=== PATIENT | female | born 1965 | race Caucasian/White ===

== ENCOUNTER 2016-02-19 18:35 | Emergency (ER) | payer OTHER ==
[2016-02-19] MEDS ORDERED: DIAZEPAM 5 MG/ML 2 ML SYRINGE IVP STA (19:21)
[2016-02-19] MEDS ORDERED: SODIUM CHLORIDE 0.9% 500 ML IV STA (19:21)
[2016-02-19] MEDS: MECLIZINE 12.5 MG TAB PO STA ×2 (19:37→20:27)
[2016-02-19] MEDS ORDERED: IPRATROPIUM-ALBUTEROL 3 ML NEB INHALATION STA (19:46)
--- NOTE | 2016-02-19 19:51 | ED ---
SOB HPI - General Chief Complaint: Shortness of Breath Stated Complaint: SHOLA Time Seen by Provider: 02/19/16 19:27 Source: patient, RN notes reviewed Mode of arrival: ambulatory Limitations: no limitations - History of Present Illness Initial Comments: Patient is a 50-year-old female presents emergency room for evaluation of shortness of breath. Patient states she began having a productive cough yesterday. Patient states that she's been taking [id number] cough medicine with no relief. Patient states today during the day the cough is worse. Patient states that now feels like someone is sitting on her chest. Patient states she feels like she can't take a deep breath or breathe all the way out. Patient does admit to smoking a half pack a day. Patient denies any significant past medical history. Patient states while she was coughing she began developing pain in her back between both shoulder blades. Patient states she began having increasing shortness of breath, which has been causing her to be anxious. Patient states she had a temperature earlier this evening and denies taking any Tylenol or Motrin. Patient states she's been on Keflex for about a week for an ingrown hair. Patient denies headache or dizziness. Patient has numbness or tingling in extremities. Patient states she did not receive her influenza vaccine this year. Patient denies abdominal pain, nausea or vomiting. - Related Data Home Medications Medication Instructions Recorded Confirmed Cephalexin [Keflex] 500 mg PO Q6HR 02/19/16 02/19/16 Ibuprofen [Motrin] 600 mg PO Q8HR PRN 02/19/16 02/19/16 Previous Rx's Medication Instructions Recorded Benzonatate [Tessalon Perles] 100 mg PO TID PRN #12 cap 02/19/16 guaiFENesin [Mucinex] 1,200 mg PO BID PRN #12 tab.er.12h 02/19/16 predniSONE 20 mg PO DAILY #5 tab 02/19/16 Allergies Allergy/AdvReac Type Severity Reaction Status Date / Time iodine Allergy Rash/Hives Verified 02/19/16 20:29 morphine Allergy Itching Verified 02/19/16 20:29 Review of Systems ROS Statement: Those systems with pertinent positive or pertinent negative responses have been documented in the HPI. ROS Other: All systems not noted in ROS Statement are negative. Past Medical History Past Medical History: No Reported History History of Any Multi-Drug Resistant Organisms: None Reported Past Surgical History: Orthopedic Surgery, Tubal Ligation Past Psychological History: No Psychological Hx Reported Smoking Status: Current every day smoker Past Alcohol Use History: Occasional Past Drug Use History: None Reported General Exam - General Exam Comments Initial Comments: Sitting in exam room, no acute distress. Limitations: no limitations General appearance: alert, in no apparent distress Head exam: Present: atraumatic, normocephalic, normal inspection Eye exam: Present: normal appearance, PERRL, EOMI Pupils: Present: normal accommodation ENT exam: Present: normal exam Neck exam: Present: normal inspection Respiratory exam: Present: normal lung sounds bilaterally. Absent: respiratory distress Cardiovascular Exam: Present: normal rhythm, tachycardia, normal heart sounds GI/Abdominal exam: Present: soft, normal bowel sounds. Absent: distended, tenderness, guarding, rebound, rigid Extremities exam: Present: normal inspection Back exam: Present: normal inspection Neurological exam: Present: alert, oriented X3, CN II-XII intact Psychiatric exam: Present: normal affect, normal mood Skin exam: Present: warm, dry, intact, normal color. Absent: rash Course Vital Signs 02/19/16 02/19/16 02/19/16 19:00 20:22 20:33 Temperature 98.2 F Pulse Rate 125 H 106 H 109 H Respiratory 24 Rate Blood Pressure 115/55 O2 Sat by Pulse 99 Oximetry 02/19/16 02/19/16 02/19/16 21:00 21:01 22:13 Temperature 98.6 F Pulse Rate 100 90 Respiratory 22 16 20 Rate Blood Pressure 100/52 101/56 O2 Sat by Pulse 98 97 Oximetry Medical Decision Making - Medical Decision Making Patient is a 50-year-old female presents to the emergency room for evaluation shortness of breath. Chest x-ray shows no significant findings. Labs significant for hypokalemia. Patient was given potassium. Cardiac labs within normal limits. Patient is resting comfortably in room. Agreed to send patient home with symptomatic treatment. Advised patient to follow up with her PCP in 24 -48 hours for reevaluation. Patient states she understands everything that was discussed with her. Return parameters discussed. Case discussed with Dr. Arellano. - Lab Data Result diagrams: 02/19/16 19:52 02/19/16 19:52 Lab Results 02/19/16 02/19/16 02/19/16 Range/Units 19:30 19:35 19:52 WBC (3.8-10.6) k/uL RBC (3.80-5.40) m/uL Hgb (11.4-16.0) gm/dL Hct (34.0-46.0) % MCV (80.0-100.0) fL MCH (25.0-35.0) pg MCHC (31.0-37.0) g/dL RDW (11.5-15.5) % Plt Count (150-450) k/uL Neutrophils % % Lymphocytes % % Monocytes % % Eosinophils % % Basophils % % Neutrophils # (1.3-7.7) k/uL Lymphocytes # (1.0-4.8) k/uL Monocytes # (0-1.0) k/uL Eosinophils # (0-0.7) k/uL Basophils # (0-0.2) k/uL PT (9.0-12.0) sec INR (<1.1) APTT (22.0-30.0) sec D-Dimer (<0.60) mg/L FEU Sodium (137-145) mmol/L Potassium (3.5-5.1) mmol/L Chloride (98-107) mmol/L Carbon Dioxide (22-30) mmol/L Anion Gap mmol/L BUN (7-17) mg/dL Creatinine (0.52-1.04) mg/dL Est GFR (MDRD) Af Amer (>60 ml/min/1.73 sqM) Est GFR (MDRD) Non-Af (>60 ml/min/1.73 sqM) Glucose (74-99) mg/dL Calcium (8.4-10.2) mg/dL Magnesium (1.6-2.3) mg/dL Total Bilirubin (0.2-1.3) mg/dL AST (14-36) U/L ALT (9-52) U/L Alkaline Phosphatase (38-126) U/L Total Creatine Kinase 101 (30-135) U/L CK-MB (CK-2) 0.7 (0.0-2.4) ng/mL CK-MB (CK-2) Rel Index 0.7 Troponin I <0.012 (0.000-0.034) ng/mL NT-Pro-B Natriuret Pep pg/mL Total Protein (6.3-8.2) g/dL Albumin (3.5-5.0) g/dL Urine Color Light Yellow Urine Appearance Clear (Clear) Urine pH 8.0 (5.0-8.0) Ur Specific [place] 1.018 (1.001-1.035) Urine Protein Negative (Negative) Urine Glucose (UA) Negative (Negative) Urine Ketones Negative (Negative) Urine Blood Trace H (Negative) Urine Nitrate Negative (Negative) Urine Bilirubin Negative (Negative) Urine Urobilinogen <2.0 (<2.0) mg/dL Ur Leukocyte Esterase Negative (Negative) Urine RBC 2 (0-5) /hpf Ur Squamous Epith Cells 2 (0-4) /hpf Urine Bacteria Rare H (None) /hpf Urine Mucus Rare H (None) /hpf Influenza Type A RNA Not Detected (Not Detectd) Influenza Type B (PCR) Not Detected (Not Detectd) 02/19/16 02/19/16 02/19/16 Range/Units 19:52 19:52 19:52 WBC 7.3 (3.8-10.6) k/uL RBC 3.96 (3.80-5.40) m/uL Hgb 13.1 (11.4-16.0) gm/dL Hct 38.1 (34.0-46.0) % MCV 96.1 (80.0-100.0) fL MCH 33.0 (25.0-35.0) pg MCHC 34.4 (31.0-37.0) g/dL RDW 12.6 (11.5-15.5) % Plt Count 231 (150-450) k/uL Neutrophils % 72 % Lymphocytes % 13 % Monocytes % 13 % Eosinophils % 1 % Basophils % 1 % Neutrophils # 5.3 (1.3-7.7) k/uL Lymphocytes # 0.9 L (1.0-4.8) k/uL Monocytes # 0.9 (0-1.0) k/uL Eosinophils # 0.0 (0-0.7) k/uL Basophils # 0.1 (0-0.2) k/uL PT 10.3 (9.0-12.0) sec INR 1.0 (<1.1) APTT 23.4 (22.0-30.0) sec D-Dimer 0.36 (<0.60) mg/L FEU Sodium 141 (137-145) mmol/L Potassium 3.0 L* (3.5-5.1) mmol/L Chloride 107 (98-107) mmol/L Carbon Dioxide 23 (22-30) mmol/L Anion Gap 11 mmol/L BUN 11 (7-17) mg/dL Creatinine 1.05 H (0.52-1.04) mg/dL Est GFR (MDRD) Af Amer >60 (>60 ml/min/1.73 sqM) Est GFR (MDRD) Non-Af 56 (>60 ml/min/1.73 sqM) Glucose 129 H (74-99) mg/dL Calcium 9.4 (8.4-10.2) mg/dL Magnesium 1.8 (1.6-2.3) mg/dL Total Bilirubin 0.3 (0.2-1.3) mg/dL AST 18 (14-36) U/L ALT 22 (9-52) U/L Alkaline Phosphatase 86 (38-126) U/L Total Creatine Kinase (30-135) U/L CK-MB (CK-2) (0.0-2.4) ng/mL CK-MB (CK-2) Rel Index Troponin I (0.000-0.034) ng/mL NT-Pro-B Natriuret Pep pg/mL Total Protein 6.0 L (6.3-8.2) g/dL Albumin 3.7 (3.5-5.0) g/dL Urine Color Urine Appearance (Clear) Urine pH (5.0-8.0) Ur Specific [place] (1.001-1.035) Urine Protein (Negative) Urine Glucose (UA) (Negative) Urine Ketones (Negative) Urine Blood (Negative) Urine Nitrate (Negative) Urine Bilirubin (Negative) Urine Urobilinogen (<2.0) mg/dL Ur Leukocyte Esterase (Negative) Urine RBC (0-5) /hpf Ur Squamous Epith Cells (0-4) /hpf Urine Bacteria (None) /hpf Urine Mucus (None) /hpf Influenza Type A RNA (Not Detectd) Influenza Type B (PCR) (Not Detectd) 02/19/16 Range/Units 19:52 WBC (3.8-10.6) k/uL RBC (3.80-5.40) m/uL Hgb (11.4-16.0) gm/dL Hct (34.0-46.0) % MCV (80.0-100.0) fL MCH (25.0-35.0) pg MCHC (31.0-37.0) g/dL RDW (11.5-15.5) % Plt Count (150-450) k/uL Neutrophils % % Lymphocytes % % Monocytes % % Eosinophils % % Basophils % % Neutrophils # (1.3-7.7) k/uL Lymphocytes # (1.0-4.8) k/uL Monocytes # (0-1.0) k/uL Eosinophils # (0-0.7) k/uL Basophils # (0-0.2) k/uL PT (9.0-12.0) sec INR (<1.1) APTT (22.0-30.0) sec D-Dimer (<0.60) mg/L FEU Sodium (137-145) mmol/L Potassium (3.5-5.1) mmol/L Chloride (98-107) mmol/L Carbon Dioxide (22-30) mmol/L Anion Gap mmol/L BUN (7-17) mg/dL Creatinine (0.52-1.04) mg/dL Est GFR (MDRD) Af Amer (>60 ml/min/1.73 sqM) Est GFR (MDRD) Non-Af (>60 ml/min/1.73 sqM) Glucose (74-99) mg/dL Calcium (8.4-10.2) mg/dL Magnesium (1.6-2.3) mg/dL Total Bilirubin (0.2-1.3) mg/dL AST (14-36) U/L ALT (9-52) U/L Alkaline Phosphatase (38-126) U/L Total Creatine Kinase (30-135) U/L CK-MB (CK-2) (0.0-2.4) ng/mL CK-MB (CK-2) Rel Index Troponin I (0.000-0.034) ng/mL NT-Pro-B Natriuret Pep 198 pg/mL Total Protein (6.3-8.2) g/dL Albumin (3.5-5.0) g/dL Urine Color Urine Appearance (Clear) Urine pH (5.0-8.0) Ur Specific [place] (1.001-1.035) Urine Protein (Negative) Urine Glucose (UA) (Negative) Urine Ketones (Negative) Urine Blood (Negative) Urine Nitrate (Negative) Urine Bilirubin (Negative) Urine Urobilinogen (<2.0) mg/dL Ur Leukocyte Esterase (Negative) Urine RBC (0-5) /hpf Ur Squamous Epith Cells (0-4) /hpf Urine Bacteria (None) /hpf Urine Mucus (None) /hpf Influenza Type A RNA (Not Detectd) Influenza Type B (PCR) (Not Detectd) - Radiology Data Radiology results: report reviewed, image reviewed Disposition Clinical Impression: Hypokalemia, Shortness of breath, Cough, Costochondral pain, Sinus congestion Disposition: HOME SELF-CARE Condition: Good Instructions: Hypokalemia (ED), Costochondritis (ED) Additional Instructions: Take medications as directed. Please follow up with primary care provider in 24 -48 hours for reevaluation. If any new symptom arises, symptoms worsen or fever develops, return to ER as soon as possible. Prescriptions: Benzonatate [Tessalon Perles] 100 mg PO TID PRN #12 cap PRN Reason: Cough guaiFENesin [Mucinex] 1,200 mg PO BID PRN #12 tab.er.12h PRN Reason: Congestion predniSONE 20 mg PO DAILY #5 tab Referrals: Eddie Martin MD [Primary Care Provider] - 1-2 days Time of Disposition: 21:57
[2016-02-19 20:08] LABS: Basophils # (A) 0.1 k/uL (0-0.2); Basophils % (A) 1 %; CH 33.2; CHCM 34.7; Eosinophils % (A) 1 %; HCT 38.1 % (34.0-46.0); HDW 2.37; HGB 13.1 gm/dL (11.4-16.0); Luc # (Auto) 0.08; Luc % (Auto) 1; Lymphocytes # (A) 0.9 k/uL (1.0-4.8); Lymphocytes % (A) 13 %; MCHC 34.4 g/dL (31.0-37.0); MCV 96.1 fL (80.0-100.0); Mean Platelet Volume 8.3; Monocytes # (A) 0.9 k/uL (0-1.0); Monocytes % (A) 13 %; Neutrophils # (A) 5.3 k/uL (1.3-7.7); Neutrophils % (A) 72 %; RBC 3.96 m/uL (3.80-5.40); RDW 12.6 % (11.5-15.5); WBC 7.3 k/uL (3.8-10.6); WBC (Perox) 7.34
[2016-02-19 20:20] LABS: ALT 22 U/L (9-52); AST 18 U/L (14-36); Alkaline Phosphatase 86 U/L (38-126); Anion Gap 11 mmol/L; Blood Urea Nitrogen 11 mg/dL (7-17); Calcium 9.4 mg/dL (8.4-10.2); Carbon Dioxide 23 mmol/L (22-30); Chloride 107 mmol/L (98-107); Glucose 129 mg/dL (74-99); Magnesium 1.8 mg/dL (1.6-2.3); Non-African American GFR(MDRD) 56 (>60 ml/min/1.73 sqM); Sodium 141 mmol/L (137-145); Total Bilirubin 0.3 mg/dL (0.2-1.3)
[2016-02-19 20:24] LABS: Partial Thromboplastin Time 23.4 sec (22.0-30.0); Prothrombin Time 10.3 sec (9.0-12.0)
[2016-02-19] MEDS ORDERED: POTASSIUM CHLORIDE ER 20 MEQ TAB.ER PO STA (20:27)
[2016-02-19 20:37] LABS: Creatine Kinase 101 U/L (30-135)
[2016-02-19 20:49] LABS: Creatine Kinase MB 0.7 ng/mL (0.0-2.4); Troponin I <0.012 ng/mL (0.000-0.034)
--- NOTE | 2016-02-19 21:00 | XR ---
EXAMINATION TYPE: XR chest 2V DATE OF EXAM: 02/19/2016 8:47 PM COMPARISON: NONE HISTORY: Difficulty breathing, shortness of breath and cough TECHNIQUE: Frontal and lateral views of the chest are obtained. FINDINGS: There is no focal air space opacity, pleural effusion, or pneumothorax seen. The cardiac silhouette size is within normal limits. There are overlying cardiac leads. Prominent lung volume ma y be indicative of COPD. The osseous structures are intact. IMPRESSION: No acute cardiopulmonary process.
[2016-02-19 21:53] LABS: Appearance,Urine Clear (Clear); Bacteria,Urine Rare /hpf; Bilirubin,Urine Negative (Negative); Glucose,Urine (UA) Negative (Negative); Ketones,Urine Negative (Negative); Leukocyte Esterase,Urine Negative (Negative); Mucus,Urine Rare /hpf; Nitrite,Urine Negative (Negative); Particle Count 1465; Protein,Urine Negative (Negative); RBC,Urine 2 /hpf (0-5); Specific Gravity,Urine 1.018 (1.001-1.035); Squamous Epithelial Cell,Urine 2 /hpf (0-4); UA Billing (MACRO vs. MICRO) MICRO; Urobilinogen,Urine <2.0 mg/dL (<2.0)
[2016-02-19 22:14] VITALS: BP 101/56; PULSE 90; RESP 20; TEMP 98.6
== END 2016-02-19 22:14 | disposition home or self-care (01) ==
LOC: EC 18:35
DX: E87.6 Hypokalemia (principal); R06.02 Shortness of breath; R05 Cough; R07.1 Chest pain on breathing; J34.89 Other specified disorders of nose and nasal sinuses; F17.200 Nicotine dependence, unspecified, uncomplicated; Z88.5 Allergy status to narcotic agent
CPT/HCPCS: 36415; 71020; 80053; 81001; 82550; 82553; 83735; 83880; 84484; 85025; 85379; 85610; 85730; 87502; 93005; 94640; 96361; 96374; 99285

== ENCOUNTER → 2016-09-01 | Outpatient (CLI) | payer BC, OTHER ==
--- NOTE | 2016-09-01 13:07 | CT ---
EXAMINATION TYPE: CT brain wo con DATE OF EXAM: 09/01/2016 COMPARISON: NONE HISTORY: Memory loss CT DLP: [address] of the brain was performed. The ventricles, basal cisterns and sulci overlying the cerebral convexities demonstrate a normal appe arance. There is no evidence for intracranial hemorrhage or sulcal effacement. No mass effects are seen. Osseous calvarium is intact. If symptoms persist consider MRI as clinically warranted. IMPRESSION: 1. No acute intracranial process is seen at this time.
== END | disposition home or self-care (01) ==
LOC: RADCTMAIN 12:43
PROVIDERS: ATTEND Physician Assistant
DX: R41.3 Other amnesia (principal); Z88.5 Allergy status to narcotic agent; Z88.1 Allergy status to other antibiotic agents
CPT/HCPCS: 70450

== ENCOUNTER → 2016-09-09 | Outpatient (CLI) | payer BC, OTHER ==
--- NOTE | 2016-09-14 11:12 | MM ---
Reason for exam: screening (asymptomatic). Last mammogram was performed 7 years and 11 months ago. History: Patient is postmenopausal. Physical Findings: A clinical breast exam by your physician is recommended on an annual basis and results should be correlated with mammographic findings. MG Screening Mammo w CAD Bilateral CC and MLO view(s) were taken. Prior study comparison: October 17, 2008, bilateral diagnostic digital mammog. The breast tissue is heterogeneously dense. This may lower the sensitivity of mammography. There is no discrete abnormality. ASSESSMENT: Negative, BI-RAD 1 RECOMMENDATION: Routine screening mammogram of both breasts in 1 year.
== END | disposition home or self-care (01) ==
LOC: RADMAMWWP 15:18
PROVIDERS: ATTEND Family Medicine
DX: Z12.31 Encounter for screening mammogram for malignant neoplasm of breast (principal)

== ENCOUNTER → 2016-11-03 | Outpatient (CLI) | payer BC, OTHER ==
--- NOTE | 2016-11-04 06:39 | US ---
EXAMINATION TYPE: US kidneys/renal and bladder DATE OF EXAM: 11/03/2016 COMPARISON: NONE CLINICAL HISTORY: R31.9 Hematuria. Microscopic hematuria, no pain EXAM MEASUREMENTS: Right Kidney: 10.0 x 3.6 x 3.9cm Left Kidney: 9.6 x 3.7 x 4.8 cm Right Kidney: wnl Left Kidney: wnl Bladder: wnl Bilateral Jets seen: not seen There is no evidence for hydronephrosis at this point in time. No nephrolithiasis is seen. No andrea s are identified. The urinary bladder is anechoic. Bilateral ureteral jets are not seen. IMPRESSION: No significant finding is seen to account for patient's symptoms.
== END | disposition home or self-care (01) ==
LOC: RADUSWWP 16:09
PROVIDERS: ATTEND Family Medicine
DX: R31.9 Hematuria, unspecified (principal)
CPT/HCPCS: 76770

== ENCOUNTER → 2017-06-23 | Outpatient (CLI) | payer OTHER ==
--- NOTE | 2017-06-23 10:09 | XR ---
Lumbar spine HISTORY: Trauma and pain 3 views of the lumbar spine, no comparisons Lumbar vertebral bodies show preserved height, alignment, and bone mineralization. There is multileve l spondylosis. Sclerosis present in the posterior elements of the lower lumbar spine. Some loss of di sc height present L5-S1 and L1-2. Vascular calcifications are noted incidentally. IMPRESSION: No acute fracture or subluxation. Degenerative disc disease and facet arthropathy.
--- NOTE | 2017-06-23 10:11 | XR ---
Cervical spine HISTORY: Trauma and pain 5 views of the cervical spine, no comparisons There is multilevel spondylosis and facet arthropathy. Spinal curvature is suspected. Lateral extensi on of endplate disc complex causes foraminal encroachment at C5-6 and C6-7 bilaterally. Cervical vert ebral bodies show preserved height. Minimal anterolisthesis grade 1 C3-4, retrolisthesis grade 1 C4-5 , C5-6. Loss of disc height present at C5-6 and C6-7 with spondylosis. Prevertebral soft tissues are normal. IMPRESSION: Degenerative disc disease. No acute fracture or subluxation.
--- NOTE | 2017-06-23 10:13 | XR ---
Thoracic spine HISTORY: Trauma and pain 3 views of the thoracic spine Comparison the cervical spine and lumbar spine same date There is a spinal curvature present, levoscoliosis centered at T12. Multilevel spondylosis is present . Thoracic vertebral bodies show preserved height and alignment. Disc spaces mildly reduced lower lev els. IMPRESSION: No acute fracture or subluxation.
--- NOTE | 2017-06-23 10:13 | XR ---
EXAMINATION TYPE: XR pelvis AP view DATE OF EXAM: 06/23/2017 CLINICAL HISTORY: Slip and fall injury with pain. TECHNIQUE: A single AP view of the pelvis is obtained. COMPARISON: None. FINDINGS: There is no acute fracture/dislocation evident in the pelvis. The hip and sacroiliac join ts appear symmetric and unremarkable. Tubal ligation clips overlie the bilateral pelvis. IMPRESSION: There is no acute fracture or dislocation in the pelvis.
== END | disposition home or self-care (01) ==
LOC: RADXRMAIN 09:33
PROVIDERS: ATTEND Emergency Medicine
DX: M51.36 Other intervertebral disc degeneration, lumbar region (principal); M46.86 Other specified inflammatory spondylopathies, lumbar region; M50.30 Other cervical disc degeneration, unspecified cervical region; S20.221A Contusion of right back wall of thorax, initial encounter
CPT/HCPCS: 72050; 72072; 72100; 72170

== ENCOUNTER → 2017-07-22 | Outpatient (CLI) | payer OTHER ==
--- NOTE | 2017-07-22 10:54 | CT ---
EXAMINATION TYPE: CT lumbar spine wo con DATE OF EXAM: 07/22/2017 10:29 AM COMPARISON: NONE HISTORY: Low back pain after injury on June [address] DLP: 987 mGycm Automated exposure control for dose reduction was used. TECHNIQUE: Unenhanced CT of the lumbar spine was performed. Bone and soft tissue window settings are submitted as well as coronal and sagittal reconstructions. FINDINGS: Vertebral body heights and alignment are maintained. Multilevel degenerative disc disease i s seen most pronounced at L4-L5 and L5-S1 with vacuum disc disease at L5-S1. Mild multilevel facet ar thropathy is also seen. Moderate calcific changes of the abdominal aorta are noted. Sacroiliac joints are symmetric. No acute fracture of the lumbar spine is seen. L1-L2: Normal disc space height. No disc herniation protrusion or central stenosis. No facet joint arthropathy. No evidence for foraminal encroachment. L2-L3: Normal disc space height. No disc herniation protrusion or central stenosis. No facet joint arthropathy. No evidence for foraminal encroachment. L3-L4: There is a small broad-based disc bulge without neural foraminal narrowing or spinal canal génesis nosis. L4-L5: There is a broad-based disc bulge resulting in mild bilateral neural foraminal narrowing witho ut spinal canal stenosis. Mild facet arthropathy is seen. L5-S1: There is a left eccentric broad-based disc bulge creating mild left neural foraminal narrowing and mild right neural foraminal narrowing in combination with mild facet arthropathy. IMPRESSION:. 1. No evidence of vertebral body height loss or malalignment of the lumbar spine. No acute fracture i s identified. 2. Mild multilevel degenerative disc disease from L3 through S1 more pronounced at L5-S1 with mild bi lateral neural foraminal narrowing seen at L4-L5 and L5-S1. If there is further concern for disc tobias iation MRI could be performed as this finding is suboptimally evaluated on CT.
== END | disposition home or self-care (01) ==
LOC: RADCTMAIN 10:13
PROVIDERS: ATTEND Emergency Medicine
DX: M99.73 Connective tissue and disc stenosis of intervertebral foramina of lumbar region (principal); M51.37 Other intervertebral disc degeneration, lumbosacral region; S20.221D Contusion of right back wall of thorax, subsequent encounter; Z91.81 History of falling
CPT/HCPCS: 72131

== ENCOUNTER → 2017-08-05 | Outpatient (CLI) | payer OTHER ==
--- NOTE | 2017-08-05 21:28 | MR ---
EXAMINATION TYPE: MR lumbar spine wo con DATE OF EXAM: 08/05/2017 COMPARISON: CT lumbar spine July 22, 2017 HISTORY: Sprain of ligaments per order. Fall injury June 23 with right-sided back pain causing pain in to left thigh as well as right buttocks and thigh per patient. TECHNIQUE: Multiplanar, multisequence imaging of the lumbar spine is performed without IV contrast. FINDINGS: Sagittal images of the lumbar spine show vertebral body heights and alignment to remain sat isfactory. Multilevel disc desiccation is seen with mild disc space narrowing L5-S1 level redemonstra vitaly otherwise disc space heights are fairly well-maintained. Tiny posterior disc herniation L5-S1 lev el is again seen on sagittal images. The conus medullaris is normal in position and signal ending mid L1 level. Heterogeneous Modic type II endplate changes anterior inferior L5 endplate are noted with increased T1 and T2 signal. Minimal multilevel anterior spurring is redemonstrated. Axial images show the T12-L1, L1-L2, and L2-L3 levels all to appear within normal limits. Axial images at L3-L4 level show mild facet arthropathy and mild broad disc bulge but spinal canal is preserved bilateral neural foramina are patent. Axial images at L4-L5 level show slightly more prominent mild facet arthropathy bilaterally. There is central disc protrusion seen but spinal canal is preserved and bilateral neural foramina are patent. Axial images at L5-S1 level show mild facet degenerative changes bilaterally. There is central disc p rotrusion seen. Spinal canal is however preserved. There is mild bilateral anterior inferior neural f oraminal narrowing seen best on sagittal images. No suspicious retroperitoneal findings are seen. IMPRESSION: Multilevel degenerative changes in the mid to lower lumbar spine most prominent L5-S1 lev el as detailed above.
== END | disposition home or self-care (01) ==
LOC: RADMRIMAIN 09:20
PROVIDERS: ATTEND Emergency Medicine
DX: M47.817 Spondylosis without myelopathy or radiculopathy, lumbosacral region (principal)
CPT/HCPCS: 72148

== ENCOUNTER → 2017-08-06 | Outpatient (CLI) | payer BC, OTHER ==
--- NOTE | 2017-08-06 12:43 | ECHOS ---
STRESS ECHOCARDIOGRAM INDICATIONS: ALESSIA MEDICATIONS: Flexeril, Motrin, Xanax, fish oil BASELINE HEART RATE: 93 BASELINE BLOOD PRESSURE: 105/68 MAXIMUM HEART RATE: 151 MAXIMUM BLOOD PRESSURE: 147/59 85% MPHR: 145 100% MPHR: 171 METS: 9.9 MAXIMUM STAGE REACHED: 3 TOTAL EXERCISE TIME: 8:15 CLINICAL INFORMATION: Baseline EKG revealed normal sinus rhythm without significant ST-T changes. There was some poor R-wave progression over leads V1 to V3. Patient walked on a standard Brain protocol for 8 minutes 15 seconds achieved a maximal heart rate of 151 beats per minute which is well above 85% of predicted maximal. She did not have any angina or arrhythmia. There was some baseline artifact noted. There was no evidence of any ST- segment changes to indicate ischemia. By EKG criteria, this is a negative stress test with fair exercise capacity. Rare PVCs were noted without angina or any other significant arrhythmia. Baseline echo images revealed normal wall motion and wall thickening of all segments. At peak exercise there was good augmentation of left ventricular wall motion and wall thickening of all segments suggesting that there is no evidence of stress-induced ischemia on this study. IMPRESSION: 1. Fair to good exercise capacity without any stress-induced ischemia. Rare isolated premature ventricular contractions were noted. Patient did not have any angina or arrhythmia. 2. Normal stress echocardiogram. MMODL / IJN: [id number] /
== END | disposition home or self-care (01) ==
LOC: RADNMMAIN 09:03
PROVIDERS: ATTEND Family Medicine
DX: I49.3 Ventricular premature depolarization (principal); I25.10 Atherosclerotic heart disease of native coronary artery without angina pectoris
CPT/HCPCS: 93351

== ENCOUNTER 2019-11-03 01:01 | Emergency (ER) | payer BC, OTHER ==
[2019-11-03 01:09] VITALS: BP 141/98; PULSE 109; RESP 20; TEMP 98.9
[2019-11-03] MEDS ORDERED: CEPHALEXIN 500 MG CAP PO STA (01:26)
--- NOTE | 2019-11-03 01:27 | ED ---
Upper Extremity HPI - General Chief Complaint: Extremity Injury, Upper Stated Complaint: right ring finger laceration Time Seen by Provider: 11/03/19 01:15 Source: patient Mode of arrival: ambulatory Limitations: no limitations - History of Present Illness Initial Comments: Patient is a 53-year-old female presenting to emergency Department with complain ts of an injury to her right ring finger that happened last week. Patient states she jammed her finger and in the process it lifted up her right ring finger nail. Patient states in the last few days she's been having increase in pain and fears that she needs to have the nail removed. She denies any fever, chills. She does not believe she had any injury to the bone but simply the nail itself. She denies any previous injuries of the right hand. She has no further complaints. - Related Data Home Medications Medication Instructions Recorded Confirmed Cephalexin [Keflex] 500 mg PO Q6HR 02/19/16 02/19/16 Ibuprofen [Motrin] 600 mg PO Q8HR PRN 02/19/16 02/19/16 Previous Rx's Medication Instructions Recorded Benzonatate [Tessalon Perles] 100 mg PO TID PRN #12 cap 02/19/16 guaiFENesin [Mucinex] 1,200 mg PO BID PRN #12 tab.er.12h 02/19/16 predniSONE [Deltasone] 20 mg PO DAILY #5 tab 02/19/16 Cephalexin [Keflex] 500 mg PO BID 5 Days #10 cap 11/03/19 Allergies Allergy/AdvReac Type Severity Reaction Status Date / Time iodine Allergy Rash/Hives Verified 11/03/19 01:09 morphine Allergy Itching Verified 11/03/19 01:09 Review of Systems ROS Statement: Those systems with pertinent positive or pertinent negative responses have been documented in the HPI. ROS Other: All systems not noted in ROS Statement are negative. Past Medical History Past Medical History: No Reported History History of Any Multi-Drug Resistant Organisms: None Reported Past Surgical History: Orthopedic Surgery, Tubal Ligation Past Psychological History: No Psychological Hx Reported Smoking Status: Current every day smoker Past Alcohol Use History: Rare Past Drug Use History: None Reported General Exam - General Exam Comments Initial Comments: GENERAL: Patient is well-developed and well-nourished. Patient is nontoxic and in no acute distress. HEAD: Atraumatic, normocephalic. EYES: Pupils equal round and reactive to light, extraocular movements intact, sclera anicteric, conjunctiva are normal. Eyelids were unremarkable. ENT: Nares patent, oropharynx clear without exudates. Moist mucous membranes. NECK: Normal range of motion, supple without lymphadenopathy or JVD. LUNGS: Unlabored respirations. Breath sounds clear to auscultation bilaterally and equal. No wheezes rales or rhonchi. HEART: Regular rate and rhythm without murmurs, rubs or gallops. ABDOMEN: Soft, nontender, normoactive bowel sounds. No guarding, no rebound. No masses appreciated. : Deferred MUSCULOSKELETAL: Patient has full range of motion of her right fingers. Normal extremities with adequate strength and normal range of motion, no pitting or edema. No clubbing or cyanosis. NEUROLOGICAL: Patient is alert and oriented x 3. Normal speech, normal gait. PSYCH: Normal mood, normal affect. SKIN: Warm, Dry, normal turgor, no rashes. Patient has some very mild surrounding erythema and swelling at the base of the right ring finger nail. Limitations: no limitations Course Vital Signs 11/03/19 01:04 Temperature 98.9 F Pulse Rate 109 H Respiratory 20 Rate Blood Pressure 141/98 O2 Sat by Pulse 97 Oximetry Medical Decision Making - Medical Decision Making Patient is a 53-year-old female here for injury to her right ring finger nail. The nail is securely attached to the nailbed. She does have some surrounding erythema and swelling with concerns of possible mild cellulitis. I will start patient on Keflex. I recommended warm soaks to the area as well as Tylenol Motrin for discomfort. Patient is stable for discharge. She is in agreement with this plan of care. She can follow up with her PCP as symptoms worsen. Disposition Clinical Impression: Contusion of right ring finger with damage to nail Disposition: HOME SELF-CARE Condition: Stable Instructions (If sedation given, give patient instructions): Nail Avulsion (ED) Additional Instructions: Please return to the Emergency Department if symptoms worsen or any other concerns. Recommend warm soaks to the right finger, take antibiotic as prescribed. Follow-up with PCP. Prescriptions: Cephalexin [Keflex] 500 mg PO BID 5 Days #10 cap Is patient prescribed a controlled substance at d/c from ED?: No Referrals: Leo Magaña MD [Primary Care Provider] - 1-2 days
== END 2019-11-03 01:48 | disposition home or self-care (01) ==
LOC: EC 01:01
DX: S60.141A Contusion of right ring finger with damage to nail, initial encounter (principal); F17.200 Nicotine dependence, unspecified, uncomplicated; Z88.5 Allergy status to narcotic agent; Z91.041 Radiographic dye allergy status; W23.1XXA Caught, crushed, jammed, or pinched between stationary objects, initial encounter
CPT/HCPCS: 99282

== ENCOUNTER 2021-10-12 10:32 | Emergency (ER) | payer OTHER ==
[2021-10-12 10:39] VITALS: BP 148/91; PULSE 95; RESP 18; TEMP 98
--- NOTE | 2021-10-12 11:02 | ED ---
General Adult HPI - General Chief complaint: Psychiatric Symptoms Stated complaint: EPS eval Time Seen by Provider: 10/12/21 10:44 Source: patient Mode of arrival: ambulatory Limitations: no limitations - History of Present Illness Initial comments: Dictation was produced using [employer] dictation software. please excuse any grammatical, word or spelling errors. Chief Complaint: 55-year-old female presents with suicidal ideation History of Present Illness: 55-year-old female presents with suicidal ideation. Patient was brought in by network field engineer. She called 911 and stated that she was depressed. She is depressed and suicidal because of some court issues. She does not have specific plan. Denies any visual or auditory hallucinations. Patient has no medical complaints. The ROS documented in this emergency department record has been reviewed and confirmed by me. Those systems with pertinent positive or negative responses have been documented in the HPI. All other systems are other negative and/or noncontributory. PHYSICAL EXAM: General Impression: Alert and oriented x3, not in acute distress HEENT: Normocephalic atraumatic, extra-ocular movements intact, pupils equal and reactive to light bilaterally, mucous membranes moist. Cardiovascular: Heart regular rate and rhythm Chest: Able to complete full sentences, no retractions, no tachypnea Abdomen: abdomen soft, non-tender, non-distended, no organomegaly Musculoskeletal: Pulses present and equal in all extremities, no peripheral edema Motor: no focal deficits noted Neurological: CN II-XII grossly intact, no focal motor or sensory deficits noted Skin: Intact with no visualized rashes Psych: Normal affect and mood ED course: 54-year-old female presents to the emergency Department for suicidal ideation. Vital Signs upon arrival are within acceptable limits. Physical examination is benign. Mentation is medically cleared for EPS evaluation Patient was evaluated by EPS recommended discharge with outpatient referral. Patient is agreeable to plan. Reevaluated at the bedside at 1237. Found to be stable medical condition. - Related Data Home Medications Medication Instructions Recorded Confirmed Cephalexin [Keflex] 500 mg PO Q6HR 02/19/16 02/19/16 Ibuprofen [Motrin] 600 mg PO Q8HR PRN 02/19/16 02/19/16 Previous Rx's Medication Instructions Recorded Benzonatate [Tessalon Perles] 100 mg PO TID PRN #12 cap 02/19/16 guaiFENesin [Mucinex] 1,200 mg PO BID PRN #12 tab.er.12h 02/19/16 predniSONE [Deltasone] 20 mg PO DAILY #5 tab 02/19/16 Cephalexin [Keflex] 500 mg PO BID 5 Days #10 cap 11/03/19 Allergies Allergy/AdvReac Type Severity Reaction Status Date / Time iodine Allergy Rash/Hives Verified 10/12/21 10:38 morphine Allergy Itching Verified 10/12/21 10:38 Review of Systems ROS Statement: Those systems with pertinent positive or pertinent negative responses have been documented in the HPI. ROS Other: All systems not noted in ROS Statement are negative. Past Medical History Past Medical History: No Reported History History of Any Multi-Drug Resistant Organisms: None Reported Past Surgical History: Orthopedic Surgery, Tubal Ligation Past Psychological History: No Psychological Hx Reported Smoking Status: Current every day smoker Past Alcohol Use History: Rare Past Drug Use History: None Reported General Exam Limitations: no limitations Course Vital Signs 10/12/21 10:36 Temperature 98 F Pulse Rate 95 Respiratory 18 Rate Blood Pressure 148/91 O2 Sat by Pulse 98 Oximetry Disposition Clinical Impression: Stress and adjustment reaction Disposition: HOME SELF-CARE Condition: Good Instructions (If sedation given, give patient instructions): Help Prevent Suicide (ED) Is patient prescribed a controlled substance at d/c from ED?: No Referrals: None,Stated [Primary Care Provider] - 1-2 days Time of Disposition: 12:37
[2021-10-12 12:53] LABS: Amorphous Sediment,Urine Moderate /hpf; Appearance,Urine Turbid (Clear); Bacteria,Urine Many /hpf; Bilirubin,Urine Negative (Negative); Blood,Urine Moderate (Negative); Color,Urine Yellow; Glucose,Urine (UA) Negative (Negative); Hyaline Casts,Urine 5 /lpf (0-2); Ketones,Urine Negative (Negative); Leukocyte Esterase,Urine Trace (Negative); Mucus,Urine Occasional /hpf; Nitrite,Urine Positive (Negative); PH, Urine 5.5 (5.0-8.0); Protein,Urine Trace (Negative); RBC,Urine 8 /hpf (0-5); Specific Gravity,Urine 1.029 (1.001-1.035); Squamous Epithelial Cell,Urine 16 /hpf (0-4); Urobilinogen,Urine <2.0 mg/dL (<2.0); WBC,Urine 7 /hpf (0-5)
[2021-10-12 12:58] LABS: Amphetamine Screen,Urine Detected (NotDetected); Barbiturate Screen,Urine Not Detected (NotDetected); Benzodiazepines Screen,Urine Not Detected (NotDetected); Cocaine Screen,Urine Not Detected (NotDetected); Methadone Screen, Urine Not Detected (NotDetected); Opiate Screen,Urine Not Detected (NotDetected); Oxycodone Screen, Urine Not Detected (NotDetected); Phencyclidine Screen,Urine Not Detected (NotDetected); Tricyclic Antidepressant,Urine Not Detected (NotDetected); Urn Cannabinoid Scrn Not Detected (NotDetected)
== END 2021-10-12 12:47 | disposition home or self-care (01) ==
LOC: EC 10:32
DX: F43.9 Reaction to severe stress, unspecified (principal); F15.90 Other stimulant use, unspecified, uncomplicated; F17.200 Nicotine dependence, unspecified, uncomplicated; Z91.041 Radiographic dye allergy status; Z88.6 Allergy status to analgesic agent
CPT/HCPCS: 80306; 81001; 82075; 99284